=== PATIENT | male | born 1935 | race Caucasian/White ===

== ENCOUNTER 2017-01-01 14:08 | Emergency (ER) | payer OTHER ==
[~2017-01-01] VITALS: Ht 170.2 cm; Wt 81.6 kg
[2017-01-01 14:16] VITALS: BP 127/67
--- NOTE | 2017-01-01 14:18 | NUR ---
BIB [facility] FROM BANK FOR SYNCOPE, LEFT OCCIPITAL HEMATOMA S/P FALL, PATIENT IS VERBALLY RESPNOSIVE, A/O X4, NEGATIVE NEURO'S, WILL CONTINUE TO MONITOR CLOSELY.
[2017-01-01] MEDS ORDERED: IV NS 0.9% 500 ML BAG IV ONE (14:30)
[2017-01-01] MEDS ORDERED: IV NS 0.9% 500 ML IV ONE (14:46)
[2017-01-01] MEDS ORDERED: IV SET PRIMARY 1 EA INFUS.SET MC ONE (14:46)
[2017-01-01 14:48] LABS: BASOPHILS # (AUTO) 0.1 /CMM (0.0-0.2); BASOPHILS % (AUTO) 0.6 % (0.0-2.0); EOSINOPHILS # (AUTO) 0.3 /CMM (0.0-0.7); EOSINOPHILS % (AUTO) 3.8 % (0.0-6.0); HEMATOCRIT 31 % (39-51); HEMOGLOBIN 10.2 g/dL (13.5-17.5); LYMPHOCYTES # (AUTO) 1.9 /CMM (0.8-4.8); LYMPHOCYTES % (AUTO) 21.6 % (20.0-44.0); MEAN CORPUSCULAR HEMOGLOBIN 28 PG (26.0-33.0); MEAN CORPUSCULAR HGB CONC 33 g/dl (31.0-36.0); MEAN CORPUSCULAR VOLUME 86 fL (80-96); MONOCYTES # (AUTO) 0.5 /CMM (0.1-1.30); MONOCYTES % (AUTO) 5.5 % (2.0-12.0); NEUTROPHILS # (AUTO) 5.9 /CMM (1.8-8.9); NEUTROPHILS % (AUTO) 68.5 % (43.0-81.0); PLATELET COUNT (AUTO) 273 /CMM (150-450); RDW COEFFICIENT OF VARIATION 12.2 (11.5-15.0); WHITE BLOOD COUNT (AUTO) 8.8 K/uL (4.3-11.0)
[2017-01-01 14:59] LABS: CARBON DIOXIDE 28 mmol/L (21-32); CHLORIDE 103 mmol/L (98-107); CREATININE 0.9 mg/dL (0.6-1.3); GLUCOSE 139 mg/dL (74-106); POTASSIUM 4.2 mmol/L (3.5-5.1); SODIUM SERUM 138 mmol/L (136-145); UREA NITROGEN, BLOOD 19 mg/dL (7-18)
[2017-01-01 15:04] LABS: ALANINE AMINOTRANSFERASE 108 U/L (12-78); ALBUMIN 2.7 g/dL (3.4-5.0); ALKALINE PHOSPHATASE 649 U/L (46-116); ASPARTATE AMINOTRANSFERASE 70 U/L (15-37); BILIRUBIN,DIRECT 0.2 mg/dL (0.0-0.2); BILIRUBIN,TOTAL 0.4 mg/dL (0.2-1.0)
[2017-01-01 15:06] LABS: INR 1.09 (0.87-1.13); PROTHROMBIN TIME 11.3 SECS (9.5-12.7); TROPONIN I < 0.017 ng/mL (0.00-0.056)
--- NOTE | 2017-01-01 15:17 | NUR ---
CALLED [facility] SPOKE WITH [employer] [facility].
--- NOTE | 2017-01-01 16:15 | NUR ---
PATIENT GOING TO [facility] ER ACCEPTED BY DR [facility]ORDERO [facility] ETA [id number]
--- NOTE | 2017-01-01 16:32 | NUR ---
REPORT GIVEN TO NURSE SHIVA @ [facility] [phone]
--- NOTE | 2017-01-01 17:02 | NUR ---
TRANSPORTATION PRN AT BEDSIDE.
== END 2017-01-01 17:57 ==
LOC: ER 14:10
DX: R55 Syncope and collapse (principal); I10 Essential (primary) hypertension; E78.5 Hyperlipidemia, unspecified; I70.0 Atherosclerosis of aorta; I25.10 Atherosclerotic heart disease of native coronary artery without angina pectoris; N40.0 Benign prostatic hyperplasia without lower urinary tract symptoms; Z95.5 Presence of coronary angioplasty implant and graft; Z90.49 Acquired absence of other specified parts of digestive tract; Z88.8 Allergy status to other drugs, medicaments and biological substances
CPT/HCPCS: 36415; 70450; 71010; 72125; 80048; 80076; 84484; 85025; 85730; 86850; 87081; 93005; 96360; 99285; A4606; J7040; Z7610